=== PATIENT | female | born 1990 | race Caucasian/White ===

== ENCOUNTER 2019-01-22 20:41 | Emergency (ER) | payer BC ==
[~2019-01-22] VITALS: Ht 167.6 cm; Wt 140.2 kg
[~2019-01-22 20:41] MED LIST: DEXA4TAB PO; EPIN0.3P4 INJ
[2019-01-22 20:48] VITALS: Ht 167.6 cm; Wt 140.2 kg
[2019-01-22] MEDS ORDERED: DIPHENHYDRAMINE 50 MG CAP PO STA (21:05)
[2019-01-22] MEDS ORDERED: FAMOTIDINE 20 MG TAB PO STA (21:05)
[2019-01-22] MEDS ORDERED: DEXAMETHASONE 4 MG TAB PO ONE (21:30)
--- NOTE | 2019-01-22 22:20 | ERD ---
ER Documentation Chief Complaint Chief Complaint hives,chest tightness,bilat hand swelling & pain HPI This is a 20-year-old female presents for evaluation of hives, bilateral hand swelling as well as chest tightness. She states she has a history of macrocytosis, and had similar episode in July. At that time she states that she received epinephrine, and has not been admitted to the hospital and subsequently had improvement. However she had all of the same symptoms. She has not had any wheezing. ROS All systems reviewed and are negative except as per history of present illness. Allergies Allergies: Coded Allergies: No Known Allergy (Unverified , 01/22/19) PMhx/Soc Hx Miscellaneous Medical Probl: Yes (mastocytosis) Hx Alcohol Use: No Hx Substance Use: No Hx Tobacco Use: No Smoking Status: Never smoker Physical Exam Vitals Vital Signs Date Temp Pulse Resp B/P (MAP) Pulse Ox O2 O2 Flow FiO2 Time Delivery Rate 01/22/19 98.0 103 18 151/87 96 21:24 (108) 01/22/19 98.0 123 18 141/77 96 20:48 (98) Physical Exam Const: Well-developed, well-nourished nontoxic Head: Atraumatic Eyes: Normal Conjunctiva ENT: Normal External Ears, Nose and Mouth. Neck: Full range of motion. No meningismus. Resp: Clear to auscultation bilaterally, no wheezes rales or rhonchi Cardio: Regular rate and rhythm, no murmurs Abd: Soft, non tender, non distended. Normal bowel sounds Skin: No petechiae. Urticaria is noted Back: No midline or flank tenderness Ext: No cyanosis, there is some swelling of the hands bilaterally, Neur: Awake and alert Psych: Normal Mood and Affect Results 24 hrs Current Medications Medications Dose Sig/Michael Start Time Status Last (Trade) Ordered Route PRN Stop Time Admin Dose Reason Admin 50 mg ONCE STAT 01/22/19 DC 01/22/19 Diphenhydrami PO 21:05 21:12 ne HCl 01/22/19 21:06 (Benadryl) Famotidine 20 mg ONCE STAT 01/22/19 DC 01/22/19 (Pepcid) PO 21:05 21:12 01/22/19 21:06 10 mg ONCE ONCE 01/22/19 DC 01/22/19 Dexamethasone PO 21:30 21:39 (Decadron) 01/22/19 21:31 Procedures/MDM 28-year-old female presents for reaction, sugar is unclear, and patient states that she has not been able to find what her allergies are due to. On exam she had no respiratory distress, and showed no evidence of anaphylaxis, she improved significantly with steroids, Benadryl and famotidine, and showed no acute worsening during observation. At discharge the patient was in no distress. Departure Diagnosis: Primary Impression: Allergic reaction Encounter type: initial encounter Qualified Codes: T78.40XA - Allergy, unspecified, initial encounter Condition: KAITLYN Rosado MD Jan 22, 2019 22:20
[2019-01-22 22:38] VITALS: BP 141/80; PULSE 100; RESP 18
== END 2019-01-22 22:38 | disposition home or self-care (01) ==
LOC: E/R 20:41
DX: L50.0 Allergic urticaria (principal)
CPT/HCPCS: Z7502; Z7610; 99283